=== PATIENT | male | born 1945 | race Caucasian/White ===

== ENCOUNTER 2016-10-15 08:13 | Outpatient (CLI) | payer MEDICARE, OTHER ==
[2016-10-15 09:02] LABS: #Basophils 0.1 thou/uL (0.0-0.2); #Eosinphils 0.3 thou/uL (0.0-0.7); #Lymphocytes 3.1 thou/uL (1.20-3.40); #Monocytes 0.7 thou/uL (0.11-0.59); %Basophils 1.2 % (0.0-1.0); %Eosinophils 2.8 % (0.0-10.0); %Lymphocytes 30.5 % (21.0-51.0); %Monocytes 6.5 % (0.0-10.0); Hemoglobin 16.1 g/dL (14.0-18.0); Mean Corpuscular HGB CONC 32.3 g/dL (32.0-36.0); Mean Corpuscular Hemoglobin 32.2 pg (27.0-31.0); Mean Corpuscular Volume 99.8 fl (80.0-94.0); Mean Platelet Volume 8.2 fL (7.4-10.4); Platelet Count 220 thou/uL (130-400); RBC Distribution Width 12.9 % (11.5-14.5); White Blood Cell (WBC) Count 10.1 thou/uL (4.8-10.8)
[2016-10-15 09:48] LABS: ALT (SGPT) 28 U/L (8-55); AST (SGOT) 20 U/L (5-34); Albumin 4.2 g/dL (3.4-4.8); Alkaline Phosphatase 82 U/L (40-150); Anion Gap 10 mmol/L (10-20); BUN (Urea Nitrogen) 14 mg/dL (8.4-25.7); Bilirubin, Direct 0.2 mg/dL (0.1-0.3); Bilirubin, Total 0.4 mg/dL (0.2-1.2); CRP (Inflammatory) 0.64 mg/dL (= or < 0.5); Calc. Creatinine Clearance 0 mL/min (70-130); Calcium 9.7 mg/dL (7.8-10.44); Carbon Dioxide 26 mmol/L (23-31); Cardiac Risk 3.1 (Less than 4.5); Chloride 105 mmol/L (98-107); Cholesterol 129 mg/dl (< 200 Desired); Estimated GFR-MDRD 73; Glucose 106 mg/dL (80-115); HDL Cholesterol 41 mg/dL (>60 Neg Risk); LDL Cholesterol, Calculated 54 mg/dL; Potassium 4.7 mmol/L (3.5-5.1); Protein, Total 7.3 g/dL (5.8-8.1); Sodium 136 mmol/L (136-145); Triglycerides 171 mg/dL (Less than 150)
[2016-10-15 09:54] LABS: Amphetamine Not Detected (NotDetected); Barbiturates Screen Not Detected (NotDetected); Benzodiazepine Screen Not Detected (NotDetected); Cocaine Metabolite Screen Not Detected (NotDetected); Medtox Control Line Valid? VALID (VALID); Methadone Not Detected (NotDetected); Methamphetamine Not Detected (NotDetected); Opiate Screen Detected (NotDetected); Oxycodone Screen Not Detected (NotDetected); Phencyclidine (PCP) Not Detected (NotDetected); THC/Cannabinoid Screen Not Detected (NotDetected); Tricyclic Screen Detected (NotDetected)
--- NOTE | 2016-10-15 10:01 | RAD ---
THREE VIEWS OF THE LEFT HAND: DATE: 10/15/16. COMPARISON: None. HISTORY: Osteoarthritis, no history of trauma, chronic pain. FINDINGS: There is cortical irregularity involving the 5th metacarpal shaft suggesting an old fracture. The bones appear of normal density, with no periarticular osteopenia or evidence of erosive change s een. There is mild radiocarpal joint space narrowing and mild degenerative change at the 1st carpometacar pal joint. There are degenerative changes involving the 2nd, 3rd, and 4th distal interphalangeal joints. No ac [place] fracture or dislocation seen. IMPRESSION: Osteoarthritic changes. Probable old 5th metacarpal fracture. No acute fracture or dislocation see n. POS: [facility]
== END 2016-10-15 08:14 ==
LOC: MADLABBHPM 08:13
PROVIDERS: ATTEND Family Medicine
DX: E78.5 Hyperlipidemia, unspecified (principal); F32.9 Major depressive disorder, single episode, unspecified; M15.9 Polyosteoarthritis, unspecified; G89.29 Other chronic pain; I10 Essential (primary) hypertension; M19.042 Primary osteoarthritis, left hand
CPT/HCPCS: 36415; 80048; 80061; 80076; 80306; 84443; 85025; 85652; 86140

== ENCOUNTER 2017-04-03 09:16 | Outpatient (CLI) | payer MEDICARE, OTHER ==
--- NOTE | 2017-04-03 09:37 | RAD ---
LEFT HAND 3 VIEWS: Date: 04/03/17 HISTORY: Hand pain. FINDINGS: There are degenerative changes in the carpals and at the carpometacarpal joints. Metacarpals and phal anges are intact. MCP joints show mild narrowing, but no erosive change. The IP joints show mild dege nerative change. No erosive change. IMPRESSION: There are degenerative changes as described. No evidence of inflammatory arthropathy or acute process . POS: [facility]
--- NOTE | 2017-04-03 09:41 | RAD ---
LEFT WRIST 4 VIEWS: Date: 04/03/17 HISTORY: Chronic pain x1 month. 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 The bones appear demineralized. There is some arthritic henley e of the first carpometacarpal joint space and triscaphe joint. There are no signs of any acute bony changes. 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 POS: [facility]
[2017-04-03 17:41] LABS: #Eosinphils 0.1 thou/uL (0.0-0.7); #Lymphocytes 1.7 thou/uL (1.20-3.40); #Monocytes 0.6 thou/uL (0.11-0.59); #Neutrophils 5.4 thou/uL (1.40-6.50); %Eosinophils 1.3 % (0.0-10.0); %Lymphocytes 22.1 % (21.0-51.0); %Monocytes 7.2 % (0.0-10.0); %Neutrophils 69.4 % (42.0-75.0); Hemoglobin 14.3 g/dL (14.0-18.0); Mean Corpuscular HGB CONC 31.9 g/dL (32.0-36.0); Mean Corpuscular Hemoglobin 32.5 pg (27.0-31.0); Mean Platelet Volume 9.2 fL (7.4-10.4); Platelet Count 194 thou/uL (130-400); RBC Distribution Width 13.5 % (11.5-14.5); White Blood Cell (WBC) Count 7.9 thou/uL (4.8-10.8)
[2017-04-03 20:05] LABS: CRP (Inflammatory) 12.52 mg/dL (= or < 0.5)
== END 2017-04-03 09:17 | disposition home or self-care (01) ==
LOC: MADLABBHPM 09:16
PROVIDERS: ATTEND Family Medicine
DX: M65.9 Synovitis and tenosynovitis, unspecified (principal); M19.032 Primary osteoarthritis, left wrist; M19.042 Primary osteoarthritis, left hand
CPT/HCPCS: 36415; 84550; 85025; 85652; 86140; 86430

== ENCOUNTER 2018-07-12 14:48 | Emergency (ER) | payer MEDICARE, MEDICAID ==
--- NOTE | 2018-07-12 15:42 | RAD ---
RADIOGRAPH CHEST 1 VIEW: Date: 07/12/18 Time: 3:33 p.m. HISTORY: 73-year-old male status post chest injury. COMPARISON: 09/09/14. FINDINGS: There are new findings of cardiomegaly, pulmonary venous engorgement, and diffuse mild interstitial d ensities consistent with pulmonary interstitial edema. There is a small focus of confluent alveolar p ulmonary density at the right lung base. No pneumothorax. Questionable tiny bilateral pleural effusio ns. IMPRESSION: 1. Congestive heart failure . 2. Nonspecific small air space density at right lung base. JN [] POS: [facility]
[2018-07-12 15:53] LABS: Hemoglobin 14.6 g/dL (14.0-18.0); Mean Corpuscular HGB CONC 31.3 g/dL (32.0-36.0); Mean Corpuscular Hemoglobin 31.6 pg (27.0-31.0); Platelet Count 147 thou/uL (130-400); RBC Distribution Width 15.5 % (11.5-14.5); Red Blood Cell (RBC) Count 4.61 mill/uL (4.70-6.10); White Blood Cell (WBC) Count 7.3 thou/uL (4.8-10.8)
[2018-07-12 15:54] LABS: %Eosinophils 2.4 % (0.0-10.0); %Lymphocytes 26.6 % (21.0-51.0); %Monocytes 5.8 % (0.0-10.0); %Neutrophils 64.6 % (42.0-75.0); Mean Platelet Volume 9.2 fL (7.4-10.4)
[2018-07-12 15:55] LABS: #Basophils 0.1 thou/uL (0.0-0.2); #Eosinphils 0.2 thou/uL (0.0-0.7); #Lymphocytes 1.9 thou/uL (1.20-3.40); #Monocytes 0.4 thou/uL (0.11-0.59); #Neutrophils 4.7 thou/uL (1.40-6.50); %Basophils 0.7 % (0.0-1.0)
[2018-07-12 15:57] LABS: Anisocytosis SLIGHT = 6-15 cells (100X) (0-5/hpf); Platelet Morphology Comment Appears Adequate
--- NOTE | 2018-07-12 15:59 | CT ---
CT BRAIN NONCONTRAST: DATE: 07/12/18 at 3:42 p.m. HISTORY: 73-year-old male with altered mental status. COMPARISON: None available. FINDINGS: There is a small focal patch of left frontal lobe cortical and subcortical encephalomalacia and glios is. There is small to moderate sized area of similar such low attenuation involving cortex and subcortica l white matter at the medial posterior aspect of the left temporal lobe and adjacent medial occipital lobe. Ventricles are normal in size and configuration. No mass effect, midline shift, extra-axial fluid col lection or calvarial fracture. No acute intra-axial or extra-axial hemorrhage. IMPRESSION: 1. No acute intracranial findings. 2. 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 3. Probable old small infarction in left posterior cerebral artery territory. WING Meier POS: [facility]
[2018-07-12 16:05] LABS: ALT (SGPT) 22 U/L (8-55); AST (SGOT) 39 U/L (5-34); Acetaminophen Less than 6.0 mcg/mL (10.0-30.0); Albumin 3.9 g/dL (3.4-4.8); Alcohol Less than 10 mg/dL (Less than 10); Alkaline Phosphatase 116 U/L (40-150); Anion Gap 16 mmol/L (10-20); BUN (Urea Nitrogen) 14 mg/dL (8.4-25.7); Bilirubin, Total 0.9 mg/dL (0.2-1.2); Calc. Creatinine Clearance 0 mL/min (70-130); Carbon Dioxide 30 mmol/L (23-31); Chloride 101 mmol/L (98-107); Estimated GFR-MDRD 80; Globulin 2.7 g/dL (2.4-3.5); Glucose 129 mg/dL (83-110); Potassium 3.4 mmol/L (3.5-5.1); Protein, Total 6.6 g/dL (5.8-8.1); Salicylate Less than 8.0 mg/dL (15.0-30.0); Sodium 144 mmol/L (136-145)
[2018-07-12 16:26] LABS: CKMB 9.4 ng/mL (0-6.6)
[2018-07-12] MEDS ORDERED: Furosemide 40 MG/4 ML VIAL ONE (17:00)
[2018-07-12 17:02] LABS: Bilirubin Negative (Negative); Blood, Urine Negative (Negative); Clarity Slightly Cloudy (Clear); Glucose, Urine (Dipstick) Negative (Negative); Leukocyte Moderate (Negative); Nitrite Negative (Negative); Protein, Urine (Dipstick) Negative (Neg-Trace); Specific Gravity, Urine 1.015 (1.005-1.030); Urobilinogen > or = 8.0 mg/dL (0.2-1.0); pH, Urine 7.5 (5.0-9.0)
[2018-07-12 17:05] LABS: RBC/HPF 0-3 HPF (0-3)
[2018-07-12 17:06] LABS: Bacteria/HPF 3+ HPF (None Seen); Squamous Epithelial 0-3 HPF (0-3)
[2018-07-12 17:09] LABS: Amphetamine Not Detected (NotDetected); Cocaine Metabolite Screen Not Detected (NotDetected); Methamphetamine Not Detected (NotDetected); Opiate Screen Not Detected (NotDetected); Phencyclidine (PCP) Detected (NotDetected); THC/Cannabinoid Screen Detected (NotDetected)
[2018-07-12 17:10] LABS: Barbiturates Screen Not Detected (NotDetected); Benzodiazepine Screen Detected (NotDetected); Medtox Control Line Valid? VALID (VALID); Methadone Not Detected (NotDetected); Oxycodone Screen Not Detected (NotDetected); Tricyclic Screen Detected (NotDetected)
== END 2018-07-12 17:44 | disposition short-term general hospital (02) ==
LOC: MADERS 14:48
DX: I11.0 Hypertensive heart disease with heart failure (principal); I50.9 Heart failure, unspecified; F03.90 Unspecified dementia, unspecified severity, without behavioral disturbance, psychotic disturbance, mood disturbance, and anxiety; R79.89 Other specified abnormal findings of blood chemistry; E78.5 Hyperlipidemia, unspecified; J44.9 Chronic obstructive pulmonary disease, unspecified; F17.210 Nicotine dependence, cigarettes, uncomplicated; Z79.899 Other long term (current) drug therapy; Z79.82 Long term (current) use of aspirin
CPT/HCPCS: 36415; 70450; 71045; 80053; 80306; 80307; 81003; 81015; 82553; 83880; 84443; 84484; 85025; 93005; 96374; J1940

== ENCOUNTER 2018-07-28 11:04 | Emergency (ER) | payer MEDICARE, MEDICAID ==
[2018-07-28 12:01] LABS: Bilirubin Negative (Negative); Blood, Urine Trace (Negative); Clarity Clear (Clear); Glucose, Urine (Dipstick) Negative (Negative); Leukocyte Negative (Negative); Nitrite Negative (Negative); Protein, Urine (Dipstick) 30 mg/dL (Neg-Trace); RBC/HPF 0-3 HPF (0-3); Specific Gravity, Urine 1.015 (1.005-1.030); Squamous Epithelial 0-3 HPF (0-3); WBC/HPF 0-3 HPF (0-3)
[2018-07-28 12:02] LABS: Bacteria/HPF Rare-Few HPF (None Seen)
[2018-07-28 12:04] LABS: #Basophils 0.1 thou/uL (0.0-0.2); #Eosinphils 0.2 thou/uL (0.0-0.7); #Lymphocytes 1.8 thou/uL (1.20-3.40); #Monocytes 0.6 thou/uL (0.11-0.59); #Neutrophils 3.7 thou/uL (1.40-6.50); %Basophils 1.5 % (0.0-1.0); %Lymphocytes 28.3 % (21.0-51.0); %Monocytes 8.7 % (0.0-10.0); %Neutrophils 58.5 % (42.0-75.0); Hemoglobin 15.3 g/dL (14.0-18.0); Mean Corpuscular HGB CONC 31.5 g/dL (32.0-36.0); Mean Corpuscular Hemoglobin 30.8 pg (27.0-31.0); Mean Corpuscular Volume 97.7 fL (78.0-98.0); Mean Platelet Volume 10.3 fL (7.4-10.4); Platelet Count 200 thou/uL (130-400); RBC Distribution Width 14.5 % (11.5-14.5); Red Blood Cell (RBC) Count 4.97 mill/uL (4.70-6.10); White Blood Cell (WBC) Count 6.4 thou/uL (4.8-10.8)
[2018-07-28 12:19] LABS: ALT (SGPT) 71 U/L (8-55); AST (SGOT) 69 U/L (5-34); Acetaminophen Less than 6.0 mcg/mL (10.0-30.0); Alcohol Less than 10 mg/dL (Less than 10); Alkaline Phosphatase 113 U/L (40-150); Anion Gap 17 mmol/L (10-20); BUN (Urea Nitrogen) 18 mg/dL (8.4-25.7); Bilirubin, Total 0.8 mg/dL (0.2-1.2); Calc. Creatinine Clearance 0 mL/min (70-130); Calcium 9.6 mg/dL (7.8-10.44); Carbon Dioxide 24 mmol/L (23-31); Chloride 101 mmol/L (98-107); Estimated GFR-MDRD 79; Globulin 2.7 g/dL (2.4-3.5); Glucose 126 mg/dL (83-110); Potassium 3.2 mmol/L (3.5-5.1); Protein, Total 6.7 g/dL (5.8-8.1); Salicylate Less than 8.0 mg/dL (15.0-30.0); Sodium 139 mmol/L (136-145)
[2018-07-28] MEDS ORDERED: Aspirin Chewable 81 MG TAB ONE (12:42)
[2018-07-28] MEDS ORDERED: Nitroglycerin 2% Ointment 1 INCH/1 GM Packet ONE (12:42)
[2018-07-28] MEDS ORDERED: Furosemide 40 MG TAB ONE ×2 (12:42→12:56)
[2018-07-28] MEDS ORDERED: Furosemide 40 MG/4 ML VIAL ONE (12:43)
[2018-07-28 12:57] LABS: Amphetamine Not Detected (NotDetected); Benzodiazepine Screen Detected (NotDetected); Cocaine Metabolite Screen Not Detected (NotDetected); Methamphetamine Not Detected (NotDetected); Opiate Screen Not Detected (NotDetected); Phencyclidine (PCP) Not Detected (NotDetected); THC/Cannabinoid Screen Detected (NotDetected); Tricyclic Screen Detected (NotDetected)
[2018-07-28 12:58] LABS: Barbiturates Screen Not Detected (NotDetected); Medtox Control Line Valid? VALID (VALID); Methadone Not Detected (NotDetected); Oxycodone Screen Not Detected (NotDetected)
[2018-07-28 13:02] LABS: CKMB 7.1 ng/mL (0-6.6)
--- NOTE | 2018-07-28 13:21 | RAD ---
PORTABLE CHEST 1 VIEW: Date: 07/28/18 Time: 1141 hours HISTORY: Altered mental status. FINDINGS: Comparison made with exam of 07/12/18. The heart size is mildly enlarged. The lungs are expanded with mild pulmonary vascular congestion. No lobar consolidation, pneumothoraces, or large effusions are seen. IMPRESSION: Mild CHF. POS: [facility]
== END 2018-07-28 14:40 | disposition left against medical advice (07) ==
LOC: MADERS 11:04
DX: I11.0 Hypertensive heart disease with heart failure (principal); I50.9 Heart failure, unspecified; J44.9 Chronic obstructive pulmonary disease, unspecified; F03.90 Unspecified dementia, unspecified severity, without behavioral disturbance, psychotic disturbance, mood disturbance, and anxiety; F32.9 Major depressive disorder, single episode, unspecified; F17.210 Nicotine dependence, cigarettes, uncomplicated; Z79.899 Other long term (current) drug therapy
CPT/HCPCS: 36415; 71045; 80053; 80306; 80307; 81003; 81015; 82553; 83880; 84484; 85025; 93005; J1940